=== PATIENT | female | born 1970 | race African-American/Black ===

== ENCOUNTER 2017-09-24 03:04 | Emergency (ER) | payer BC ==
[2017-09-24] MEDS ORDERED: METHYLPREDNISOLONE INJ 125 MG/2 ML SDV IV ONE (03:54)
[2017-09-24] MEDS ORDERED: EPINEPHRINE INJ/PF 1 MG/1 ML AMPULE IM ONE (03:54)
[2017-09-24] MEDS ORDERED: FAMOTIDINE INJ/PF 20 MG/2 ML SDV IV ONE (03:55)
[2017-09-24] MEDS ORDERED: DIPHENHYDRAMINE HCL 50 MG/ML VIAL IV ONE ×2 (03:55→05:13)
--- NOTE | 2017-09-24 03:58 | ER Document Report ---
ED Allergic Reaction - General Chief Complaint: Allergic Reaction Stated Complaint: TROUBLE SWALLOWING Time Seen by Provider: 09/24/17 03:54 Notes: Patient is a 46-year-old female comes emergency itchy throat, hoarse voice, difficulty swallowing. Symptoms started just prior to arrival. She states that she had similar symptoms yesterday and was placed on 5 mg of prednisone daily, she is not taking any antihistamines, she did not require epinephrine. She denies history of the same. TRAVEL OUTSIDE OF THE [place] IN LAST 30 DAYS: No - Related Data Allergies/Adverse Reactions: No Known Drug Allergies Allergy (Verified 02/27/11 14:08) Past Medical History - General Information source: Patient - Social History Smoking Status: Never Smoker Frequency of alcohol use: None Drug Abuse: None Lives with: Family Family History: Reviewed & Not Pertinent - Past Medical History Cardiac Medical History: Reports: Hx Hypertension Past Surgical History: Reports: Hx Hysterectomy - Immunizations Hx Diphtheria, Pertussis, Tetanus Vaccination: Yes Review of Systems - Review of Systems Constitutional: No symptoms reported EENT: See HPI Cardiovascular: No symptoms reported Respiratory: No symptoms reported Gastrointestinal: No symptoms reported Genitourinary: No symptoms reported Female Genitourinary: No symptoms reported Musculoskeletal: No symptoms reported Skin: No symptoms reported Hematologic/Lymphatic: No symptoms reported Neurological/Psychological: No symptoms reported Physical Exam - Vital signs Vitals: Temp Pulse Resp BP Pulse Ox 97.5 F 89 20 183/93 H 99 09/24/17 03:10 09/24/17 03:10 09/24/17 03:10 09/24/17 03:10 09/24/17 03:10 - Notes Notes: GENERAL: Patient pale, anxious, appears uncomfortable HEAD: Normocephalic, atraumatic. EYES: Pupils equal, round, and reactive to light. Extraocular movements intact. ENT: Oral mucosa moist, tongue midline. Questionable minimal posterior pharyngeal swelling although airway is still patent. Patient speaking in a hoarse voice. No tonsillar hypertrophy or overt uvular edema. NECK: Full range of motion. Supple. Trachea midline. LUNGS: Clear to auscultation bilaterally, no wheezes, rales, or rhonchi. No respiratory distress. HEART: Regular rate and rhythm. No murmur ABDOMEN: Soft, non-tender. Non-distended. Bowel sounds present in all 4 quadrants. EXTREMITIES: Moves all 4 extremities spontaneously. No edema, normal radial and dorsalis pedis pulses bilaterally. No cyanosis. BACK: no cervical, thoracic, lumbar midline tenderness. No saddle anesthesia, normal distal neurovascular exam. NEUROLOGICAL: Alert and oriented x3. Normal speech. [cranial nerves II through XII grossly intact]. PSYCH: Normal affect, normal mood. SKIN: Warm, dry, normal turgor. No rashes or lesions noted. Course - Re-evaluation Re-evalutation: No hives, wheezing, however patient speaks with a hoarse voice, has questionable minimal posterior pharyngeal swelling, however no airway compromise or respiratory distress. Because of these findings patient was given epinephrine, Solu-Medrol, antihistamines. Within 2 minutes patient had complete resolution of her symptoms. Patient reevaluated, no return of symptoms. Patient reevaluated again, has been monitored for 2 hours, she states her throat feels a little bit scratchy, however her exam is unremarkable. Given an additional Benadryl. Patient has been reevaluated again, she has been here for 3-1/2 hours, she has not had any return of symptoms, she has a normal examination. Discussed treatment, expectations, primary care follow-up, and return precautions in detail. Patient states understanding and agreement with plan. - Vital Signs Vital signs: Temp Pulse Resp BP Pulse Ox 97.5 F 89 20 125/70 98 09/24/17 03:10 09/24/17 03:10 09/24/17 07:01 09/24/17 07:01 09/24/17 07:01 Discharge - Discharge Clinical Impression: Allergic reaction Qualifiers: Encounter type: initial encounter Qualified Code(s): T78.40XA - Allergy, unspecified, initial encounter Condition: Stable Disposition: HOME, SELF-CARE Additional Instructions: Your evaluation was consistent with an allergic reaction although the cause is not clear at this time. Follow-up with primary care, he may need allergy testing. Recommendation is to take the antihistamines prescribed for 1 week, continue prednisone, in the event of allergic reaction including difficulty breathing, difficulty swallowing, swelling of the face, rash over your body, take the epinephrine and return immediately to the emergency department. Prescriptions: Cetirizine HCl [Zyrtec 10 mg Tablet] 1 tab PO DAILY #30 tablet Epinephrine [Epipen 2-Efe] 0.3 mg IM ASDIR PRN #1 packet PRN Reason: Famotidine [Pepcid 20 mg Tablet] 20 mg PO DAILY #12 tablet Forms: Return to Work
[2017-09-24 07:11] VITALS: BP 125/70
== END 2017-09-24 07:40 | disposition home or self-care (01) ==
LOC: ER 03:04
DX: T78.40XA Allergy, unspecified, initial encounter (principal); R13.10 Dysphagia, unspecified; R49.0 Dysphonia; I10 Essential (primary) hypertension
CPT/HCPCS: 96376; 99283; 96372; 96374; 96375; J1200; J0171; J2930; S0028